=== PATIENT | male | born 1985 | race Caucasian/White ===

== ENCOUNTER 2017-06-28 11:12 | Emergency (ER) | payer SELFPAY ==
[~2017-06-28] VITALS: Ht 182.9 cm; Wt 72.6 kg
[2017-06-28 11:12] VITALS: BP_SYST 119
--- NOTE | 2017-06-28 11:12 | NUR ---
BROUGHT IN BY JONNA ROBERTSON, PLACED IN HALLWAY AND TRIAGED. WILL ASSUME CARE.
--- NOTE | 2017-06-28 11:14 | NUR ---
DR SYED AT BEDSIDE FOR EVALUATION
[2017-06-28 11:25] VITALS: BP_SYST 120
--- NOTE | 2017-06-28 11:27 | NUR ---
Patient given written and verbal discharge instructions and verbalizes understanding. ER MD discussed with patient the results and treatment provided. Patient in stable condition. ID arm band removed. Rx of AFTRIN given. Patient educated on pain management and to follow up with PMD. Pain Scale 0/10. Opportunity for questions provided and answered.
== END 2017-06-28 11:25 ==
LOC: SED 11:12
DX: J32.9 Chronic sinusitis, unspecified (principal); F17.210 Nicotine dependence, cigarettes, uncomplicated
CPT/HCPCS: 99283